=== PATIENT | male | born 1970 | race Caucasian/White ===

== ENCOUNTER 2016-10-24 23:18 | Emergency (ER) | payer MEDICAID ==
[~2016-10-24] VITALS: Ht 182.9 cm; Wt 72.9 kg
[2016-10-24] MEDS ORDERED: HYDROcodone/APAP 5/325 TABLET ONE (23:53)
[2016-10-25] MEDS ORDERED: HYDROcodone/APAP 5/325 TABLET PO ONE
[2016-10-25 00:29] VITALS: BP 139/87
== END 2016-10-25 00:29 | disposition home or self-care (01) ==
LOC: ED 10-25 00:23
DX: Z77.098 Contact with and (suspected) exposure to other hazardous, chiefly nonmedicinal, chemicals (principal); Z88.0 Allergy status to penicillin
CPT/HCPCS: 99282; 99283

== ENCOUNTER 2017-07-25 12:53 | Emergency (ER) | payer MEDICAID ==
[~2017-07-25] VITALS: Ht 185.4 cm; Wt 78.0 kg
[2017-07-25 12:54] VITALS: BP 112/74
[2017-07-25] MEDS ORDERED: LIDOCAINE-MPF 1%, 5ML ONE (13:38)
[2017-07-25] MEDS ORDERED: CEFTRIAXONE 1,000 MG ONE (13:55)
[2017-07-25] MEDS ORDERED: LIDOCAINE-MPF 1%, 5ML INFIL ONE (14:00)
[2017-07-25] MEDS ORDERED: CEFTRIAXONE 1,000 MG IM ONE (14:00)
== END 2017-07-25 14:06 | disposition home or self-care (01) ==
LOC: ED 14:00
DX: L02.416 Cutaneous abscess of left lower limb (principal); L73.9 Follicular disorder, unspecified; F15.129 Other stimulant abuse with intoxication, unspecified
CPT/HCPCS: 10060; 96372; 99283; J0696

== ENCOUNTER 2019-08-25 00:23 | Emergency (ER) | payer MEDICAID ==
[~2019-08-25] VITALS: Ht 185.4 cm; Wt 84.0 kg
[2019-08-25 00:30] VITALS: BP 84/54
[2019-08-25] MEDS ORDERED: IBUPROFEN 800 MG TABLET ONE (00:59)
[2019-08-25] MEDS ORDERED: IBUPROFEN 800 MG TABLET PO ONE (01:00)
== END 2019-08-25 01:16 | disposition home or self-care (01) ==
LOC: ED 01:00
DX: F15.129 Other stimulant abuse with intoxication, unspecified (principal); F17.200 Nicotine dependence, unspecified, uncomplicated; Z72.9 Problem related to lifestyle, unspecified; Y04.0XXA Assault by unarmed brawl or fight, initial encounter; Y93.89 Activity, other specified; Y92.488 Other paved roadways as the place of occurrence of the external cause; Y99.8 Other external cause status
CPT/HCPCS: 99283